=== PATIENT | male | born 1970 | race Caucasian/White ===

== ENCOUNTER 2021-12-11 09:50 | Emergency (ER) | payer OTHER, SELFPAY ==
[2021-12-11] VITALS (17 sets, daily range): BP systolic 129–158; BP diastolic 76–89; PULSE 68–77; RESP 18; TEMP 36.5; O2SAT 98–100; BMI 28.3
--- NOTE | 2021-12-11 10:03 | ED_ITS ---
HPI - General Adult General Chief complaint: Abdominal Pain Stated complaint: fluid in belly Time Seen by Provider: 12/11/21 09:54 Source: patient Mode of arrival: Ambulatory Limitations: no limitations History of Present Illness HPI narrative: 51-year-old male who has a history of ascites. He states he does see a GI doctor and a kidney doctor and a primary doctor in [place]. He is visiting the local area. Has had multiple paracentesis in the past. He states that there still under investigation as to whether not it is his liver or his kidneys that is causing the issues. Over the past 7-10 days he has noticed increasing swelling in his abdomen. Some minor shortness of breath. He is not on blood thinners. He is here in the emergency department for a paracentesis. Review of Systems Constitutional Constitutional: Reports system reviewed and no additional complaints, except as documented Respiratory Respiratory: Reports as per HPI and Reports system reviewed and no additional complaints, except as documented Gastrointestinal Gastrointestinal: Reports as per HPI and Reports system reviewed and no additional complaints, except as documented Genitourinary Genitourinary: Reports system reviewed and no additional complaints, except as documented Hematologic/Lymphatic On Anticoagulants: No Patient History Medical History (Updated 12/11/21 @ 11:50 by Gulshan Austin DO) Ascites Social History lives independently: Yes Exam Initial Vital Signs Initial Vital Signs: Vital Signs Temperature 97.7 F 12/11/21 09:55 Pulse Rate 76 12/11/21 09:55 Respiratory Rate 18 12/11/21 09:55 Blood Pressure 158/85 H 12/11/21 09:55 Pulse Oximetry 99 12/11/21 09:55 Oxygen Delivery Method 12/11/21 09:55 [facility] Head: normal to inspection and normocephalic Resp Effort & Inspection: normal respiratory effort and not labored Auscultation: clear to auscultation bilaterally Cardio Rate: regular rate GI Inspection: distended Palpation: soft, No tender and ascites Skin General: no rashes or lesions noted Neuro General: patient alert, patient awake and moves all extremities Extrem General: normal to inspection and capillary refill normal Psych Appearance: grossly normal Procedures Paracentesis Time Out Performed: Yes Indication: Ascites Procedure: therapeutic paracentesis Location: RLQ Local Anesthetic: lidocaine 1% Amount of anesthesia used (mL): 2 Bedside Ultrasound Used: yes, Ascites confirmed and location marked Preparation: Blade used to make hua in skin Amount of fluid obtained (mL): 8,000 Fluid: clear Post Procedure Exam: awake, alert and normal BP Patient Tolerated Procedure: Well and No complications Course Vital Signs Vital signs: Vital Signs - 8 hr 12/11/21 10:30 12/11/21 10:30 12/11/21 11:00 Pulse Rate 68 Blood Pressure 129/76 154/87 H Pulse Oximetry 100 Oxygen Delivery Method 12/11/21 11:00 12/11/21 11:15 12/11/21 11:15 Pulse Rate 73 73 Blood Pressure 151/88 H Pulse Oximetry 100 99 Oxygen Delivery Method 12/11/21 11:30 12/11/21 11:30 12/11/21 11:40 Pulse Rate 73 Blood Pressure 148/88 H 144/82 H Pulse Oximetry 100 Oxygen Delivery Method 12/11/21 11:40 12/11/21 12:00 12/11/21 12:00 Pulse Rate 72 68 Blood Pressure 137/80 Pulse Oximetry 99 99 Oxygen Delivery Method 12/11/21 12:11 12/11/21 12:11 12/11/21 12:12 Pulse Rate 70 Blood Pressure 139/89 137/85 Pulse Oximetry 99 Oxygen Delivery Method 12/11/21 12:12 12/11/21 12:20 12/11/21 12:20 Pulse Rate 71 71 Blood Pressure 131/81 Pulse Oximetry 98 99 Oxygen Delivery Method 12/11/21 12:30 12/11/21 12:30 12/11/21 12:40 Pulse Rate 71 69 Blood Pressure 134/84 Pulse Oximetry 98 99 Oxygen Delivery Method Room Air 12/11/21 12:40 12/11/21 12:50 12/11/21 12:50 Pulse Rate 74 Blood Pressure 138/84 136/79 Pulse Oximetry 99 Oxygen Delivery Method 12/11/21 13:00 12/11/21 13:00 12/11/21 13:10 Pulse Rate 71 Blood Pressure 140/86 140/86 Pulse Oximetry 98 Oxygen Delivery Method 12/11/21 13:10 Pulse Rate 69 Blood Pressure Pulse Oximetry 99 Oxygen Delivery Method Medical Decision Making MDM Narrative Medical decision making narrative: Patient has had an issue with ascites. He has had a paracentesis in the past. He does have a distended abdomen. No respiratory distress. Patient is here for therapeutic paracentesis. We discussed risks and benefits. Did remove 8 L of fluid. The patient tolerated this well. Has had no issues with hypotension. Ambulated afterwards without issues. He its his care CTA ago will follow-up when he returns home. We did discuss return precautions and follow-up instructions. Patient is afebrile. Clear fluid. Low suspicion for infection. We will not send it for any cultures for now. He expressed understanding and agreement this plan. Discharge Plan Departure Patient Disposition: Home Clinical Impression: Ascites Instructions: DI for Ascites, Abdominal Paracentesis Activity Restrictions/Additional Instructions: It is important that you follow-up with your providers when you return back home. Continue to take any medication as directed. Return to the emergency department for any new or worsening symptoms. Referrals: Nadiya Francis MD [Physician] - Visit Report Forms: Patient Portal/API
== END 2021-12-11 13:22 | disposition home or self-care (01) ==
PROVIDERS: Emergency Provider Emergency Medicine
DX: R18.8 Other ascites (principal)
CPT/HCPCS: 49083; 99281; 99283

== ENCOUNTER 2022-01-25 07:50 | Emergency (ER) | payer OTHER, SELFPAY ==
[2022-01-25] VITALS (13 sets, daily range): BP systolic 118–137; BP diastolic 70–88; PULSE 66–74; RESP 18; TEMP 36.3; O2SAT 98–100; BMI 26.9
[2022-01-25 08:21] LABS: Add Manual Diff / Slide Review NO; Basophils Absolute Auto 100 /uL (0-100); Basophils Percent Auto 0.9 % (0-2); Eosinophils Absolute Auto 200 /uL (0-450); Eosinophils Percent Auto 2.3 % (2-4); Hematocrit 30.8 % (41-53); Hemoglobin 10.8 g/dL (13.5-17.5); Lymphocytes Absolute Auto 1500 /uL (1100-4500); Lymphocytes Percent Auto 15.2 % (25-40); Mean Corpuscular HGB Conc 35.2 % (30-36); Mean Corpuscular Volume 88.1 fL (80-100); Monocytes Absolute Auto 1300 /uL (0-900); Monocytes Percent Auto 13.6 % (3-14); Neutrophils Absolute Auto 6600 /uL (1500-7000); Platelet Count 125 X10^3/uL (150-400); Red Blood Cell Count 3.49 X10^6/uL (4.5-5.9); Red Cell Distribution Width 14.5 % (11.6-14.8); White Blood Cell Count 9.7 X10^3/uL (4.5-11.0)
[2022-01-25 08:22] LABS: INR 1.3 (0.9-1.3); Prothrombin Time 14.8 SECONDS (10.1-12.7)
[2022-01-25 08:24] LABS: PTT Partial Thromboplastin Tim 43 SECONDS (26.4-36.2)
[2022-01-25 08:28] LABS: Alanine Aminotransferase 17 IU/L (<50); Albumin 4.7 g/dL (3.5-5.0); Alkaline Phosphatase 91 U/L (38-126); Aspartate Aminotransferase 25 IU/L (17-59); BUN Creatinine Ratio 12.3 (6-22); Blood Urea Nitrogen 42 mg/dL (9-20); Calcium 9.2 mg/dL (8.4-10.2); Carbon Dioxide 23 mmol/L (22-32); Chloride 102 mmol/L (98-107); Estimated Glomerular Filt Rate 21 mL/min (>60); Globulin 4.5 g/dL (1.7-4.1); Glucose 121 mg/dL (70-100); HEMOLYSIS < 15 (0-50); Lipase 165 U/L (23-300); Potassium 3.9 mmol/L (3.4-5.1); Sodium 137 mmol/L (137-145); Total Protein 9.2 g/dL (6.3-8.2)
--- NOTE | 2022-01-25 09:56 | ED.ABDPAIN ---
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 Patient lives full-time in [place] and receives all of his care there but has a house locally and has been visiting the area regularly. Patient states he has had paracentesis in the past typically 8-10 L off they will sometimes give albumin sometimes will not. He states he has been slowly accumulating fluid it is becoming more and more uncomfortable. He is not established with a primary care provider locally. He denies fevers or chills. No chest pain or shortness of breath. No abdominal pain. No nausea or vomiting. No issues with urination or bowel movements. Patient denies any swelling in his extremities. Patient states no prior surgeries. No known drug allergies. He was on Bumex but stopped this recently as he felt like it was not very helpful. He is continuing on his Lasix he is also on beta-rocio. Review of Systems Review of Systems ROS Unobtainable: All systems reviewed & are unremarkable except as noted in HPI and below Patient History Medical History Ascites Social History lives independently: Yes alcohol intake frequency: other Substance Use Type: former substance user Exam Narrative Exam Narrative: GENERAL: Alert and oriented x three, mild distress HEENT: Head normocephalic, atraumatic, EOMI, pupils reactive, face symmetric, moist mucous membranes NECK: Supple, full range of motion CARDIOVASCULAR: Regular rate and rhythm without murmurs, rubs or gallops. RESPIRATORY: Breath sounds equal bilaterally, no wheezes rales or rhonchi. ABDOMEN: Soft, distended. Nontender. Normoactive bowel sounds all 4 quadrants. No guarding or rebound, rigidity, no mass : No CVA tenderness EXTREMITIES: Normal range of motion, no clubbing or edema. Neurovascularly intact NEUROLOGICAL: Cranial nerves II through XII grossly intact. Moving all extremities SKIN: Warm, dry, no petechiae, no rashes or lesions. Initial Vital Signs Initial Vital Signs: Vital Signs Temperature 97.3 F L 01/25/22 07:50 Pulse Rate 74 01/25/22 07:50 Respiratory Rate 18 01/25/22 07:50 Blood Pressure 131/78 01/25/22 07:50 Pulse Oximetry 100 01/25/22 07:50 Oxygen Delivery Method 01/25/22 07:50 Course Orders Ordered: Discontinued Medications Albumin Human (Albuminar) 50 gm in 200 mls @ 60 mls/hr IV NOW ONE Stop: 01/25/22 15:00 Last Infusion: 01/25/22 14:01 Dose: 0 mls/hr Documented By: Admin: 01/25/22 12:09 Dose: 60 mls/hr Documented By: BS Reevaluation(s) Reevaluation #1: Patient had paracentesis, at about 7.5 L his catheter fell out. It was not replaced. Patient did receive albumin he had the 1st bottle but politely refuses the 2nd 1 and had 25 g total. He has not been hypotensive Time: 13:37 Vital Signs Vital signs: Vital Signs - 8 hr 01/25/22 13:00 01/25/22 13:00 01/25/22 13:30 Pulse Rate 69 Blood Pressure 136/84 127/77 Pulse Oximetry 100 01/25/22 13:30 Pulse Rate 69 Blood Pressure Pulse Oximetry 100 MDM - Abdominal Pain Lab Data Result diagrams: 01/25/22 08:07 01/25/22 08:07 Labs: Lab Results 01/25/22 01/25/22 01/25/22 Range/Units 08:07 08:07 08:07 WBC 9.7 (4.5-11.0) X10^3/uL RBC 3.49 L (4.5-5.9) X10^6/uL Hgb 10.8 L (13.5-17.5) g/dL Hct 30.8 L (41-53) % MCV 88.1 (80-100) fL MCH 31.0 (26-34) PG MCHC 35.2 (30-36) % RDW 14.5 (11.6-14.8) % Plt Count 125 L (150-400) X10^3/uL Neut % (Auto) 68.0 (50-75) % Lymph % (Auto) 15.2 L (25-40) % [place] % (Auto) 13.6 (3-14) % Eos % (Auto) 2.3 (2-4) % Baso % (Auto) 0.9 (0-2) % Neut # (Auto) 6600 (6965-5587) /uL Lymph # (Auto) 1500 (2714-6076) /uL [place] # (Auto) 1300 H (0-900) /uL Eos # (Auto) 200 (0-450) /uL Baso # (Auto) 100 (0-100) /uL PT 14.8 H (10.1-12.7) SECONDS INR 1.3 (0.9-1.3) APTT 43 H (26.4-36.2) SECONDS Sodium 137 (137-145) mmol/L Potassium 3.9 (3.4-5.1) mmol/L Chloride 102 (98-107) mmol/L Carbon Dioxide 23 (22-32) mmol/L BUN 42 H (9-20) mg/dL Creatinine 3.42 H (0.66-1.25) mg/dL Estimated GFR 21 L (>60) mL/min BUN/Creatinine Ratio 12.3 (6-22) Glucose 121 H (70-100) mg/dL Calcium 9.2 (8.4-10.2) mg/dL Total Bilirubin 1.0 (0.2-1.3) mg/dL AST 25 (17-59) IU/L ALT 17 (<50) IU/L Alkaline Phosphatase 91 (38-126) U/L Total Protein 9.2 H (6.3-8.2) g/dL Albumin 4.7 (3.5-5.0) g/dL Globulin 4.5 H (1.7-4.1) g/dL Albumin/Globulin Ratio 1.0 (1.0-2.8) Lipase 165 (23-300) U/L Imaging Data paracentesis US: Radiologist's Impression: Close Paracentesis Ultrasound (Signed) Dany Plata - 01/25/22 Launch?[address] [address] Ultrasound Report Signed Patient: Ross Carrillo MR#: [id number] : 1970 Acct:[id number] Age/Sex: 51 / M Date of Service: 01/25/22 Loc: ED Accession Number: [id number] ?? Procedure: US paracentesis Ordering Provider: Lala Penn D.O. PROCEDURE:? US PARACENTESIS ? INDICATIONS:? ASCITIES ? TECHNIQUE:? The indications, alternatives, benefits, risks, and complications of the procedure were explained to the patient.? Written informed consent was obtained and placed in the chart. ?The abdomen and pelvis were examined sonographically, and an appropriate site was chosen for paracentesis.? The skin was prepared and draped in the usual sterile fashion, and 1% lidocaine was infiltrated from the skin down through the peritoneal surface.? A 19-gauge catheter-covered needle was then introduced into the peritoneal space, the catheter was advanced and the needle was withdrawn, and thereafter peritoneal fluid was withdrawn.? The catheter was then removed and a dressing was applied.? The fluid was discarded if the clinician did not order diagnostic testing of the fluid.? ? COMPARISON:? None. ? FINDINGS:? Access site:? Right lower quadrant Needle:? One-Step centesis catheter with introducer needle.? Fluid volume and description:? Clear, 7200 cc Fluid sent for diagnostic testing:? No Medications:? 1% lidocaine for local anaesthesia.? Complications:? None.? Discussed with ED clinician to confirm that? albumin was ordered and will be given following procedure. ? IMPRESSION:? Successful ultrasound-guided paracentesis.? ? ? Dictated by: Dany Plata M.D. on 01/25/2022 at 13:05 ? ? Approved by: Dany Plata M.D. on 01/25/2022 at 13:06??? MDM Narrative Medical decision making narrative: This is a 51-year-old male with known liver failure secondary to alcohol abuse. He has had paracentesis in the past at 1 point he was every 2 weeks he states it is based out since then but he is had accumulation while he has been staying locally. Majority of his care is in [facility]. He has known chronic kidney disease stage 4. He does not have major electrolyte changes today, platelets are appropriate. Patient is quite distended although not requiring emergent paracentesis he does not have local primary care and would benefit from drainage today. No changes or clinical symptoms concerning for SBP today. Patient has hemoglobin of which is not atypical with chronic kidney disease platelets are 125. PT/INR is 1.3. Creatinine 3.42 no priors for comparison with a GFR of 21, electrolytes are otherwise stable. Patient had 7.2 L drained, catheter had fallen out so patient did not have any additional he is had up to 10 L in the past. Patient did have albumin ordered he refused the 2nd bottle so received 25 g but not the full 50. Patient has not been hypotensive, is able to ambulate without issue. He and I discussed ways to help him set up with local primary care in case he needs frequent ultrasound-guided paracentesis as he is spending a lot of time locally and does not have any outpatient care locally. Discharge Plan Departure Patient Disposition: Home Clinical Impression: Ascites Instructions: DI for Abdominal Paracentesis Activity Restrictions/Additional Instructions: Follow-up with primary care locally to establish. You can call [phone] to help you find a primary care physician. They can help coordinate care if you are spending more time in the area regularly and also help arrange for outpatient paracentesis. As discussed you can reach out to billing and they may be able to answer questions about what your current health insurance can cover as an outpatient. Your labs today show a slightly low platelets, your creatinine or renal function is 3.42 with a GFR of 21, I would reach out to your nephrology or renal team for primary care in [place] to confirm that this is your normal baseline as I have no prior labs for comparison. Please return for fevers, new or worsening abdominal pain, shortness of breath, lightheadedness or passing out, increasing swelling of extremities or abdomen, persistent vomiting, black or bloody stools or other new or concerning symptoms. Visit Report Forms: Patient Portal/API
--- NOTE | 2022-01-25 10:22 | DI.US.S_ITS ---
PROCEDURE: US PARACENTESIS INDICATIONS: ASCITIES TECHNIQUE: The indications, alternatives, benefits, risks, and complications of the procedure were explained to the patient. Written informed consent was obtained and placed in the chart. The abdomen and pelvis were examined sonographically, and an appropriate site was chosen for paracentesis. The skin was prepared and draped in the usual sterile fashion, and 1% lidocaine was infiltrated from the skin down through the peritoneal surface. A 19-gauge catheter-covered needle was then introduced into the peritoneal space, the catheter was advanced and the needle was withdrawn, and thereafter peritoneal fluid was withdrawn. The catheter was then removed and a dressing was applied. The fluid was discarded if the clinician did not order diagnostic testing of the fluid. COMPARISON: None. FINDINGS: Access site: Right lower quadrant Needle: One-Step centesis catheter with introducer needle. Fluid volume and description: Clear, 7200 cc Fluid sent for diagnostic testing: No Medications: 1% lidocaine for local anaesthesia. Complications: None. Discussed with ED clinician to confirm that albumin was ordered and will be given following procedure. IMPRESSION: Successful ultrasound-guided paracentesis. Dictated by: Dany Plata M.D. on 01/25/2022 at 13:05 Approved by: Dany Plata M.D. on 01/25/2022 at 13:06
[2022-01-25] MEDS: ALBUMIN HUMAN 50 GM/200 ML VIAL IV (12:09)
--- NOTE | 2022-01-25 13:31 | PC.NURSE ---
Pt declines second dose of Albumin. Provider aware.
== END 2022-01-25 13:51 | disposition home or self-care (01) ==
PROVIDERS: Emergency Provider Emergency Medicine
DX: R18.8 Other ascites (principal); N18.4 Chronic kidney disease, stage 4 (severe); Z99.2 Dependence on renal dialysis
CPT/HCPCS: 36415; 49083; 80053; 83690; 85025; 85610; 85730; 96365; 96366; 99284; P9041

== ENCOUNTER 2022-02-02 06:30 | Emergency (ER) | payer OTHER, SELFPAY ==
[2022-02-02] VITALS (15 sets, daily range): BP systolic 117–138; BP diastolic 69–90; PULSE 65–75; RESP 20; TEMP 36.5; O2SAT 98–100; BMI 26.1
[2022-02-02 07:31] LABS: COVID19 -Nasal RAPID Negative (Negative)
--- NOTE | 2022-02-02 08:04 | ED_ITS ---
HPI - General Adult General Chief complaint: Abdominal Pain Stated complaint: fluid in stomach Time Seen by Provider: 02/02/22 07:06 Source: patient Mode of arrival: Ambulatory History of Present Illness HPI narrative: 51-year-old gentleman history of alcohol use disorder who has had no alcohol for at least the last year history of cirrhosis and chronic kidney injury with creatinine typically running in the 3.2-3.5 range presents with recurrent significant ascites. 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 He had been on both Lasix and Bumex that last week stop both of them because he felt that they were making him worse and not improving symptoms. Notes that he has been eating more but reports that it is healthy overall choices. He has been drinking more tea and coffee recently he is not complaining of pain. He does report dyspnea and orthopnea simply due to the physical volume of ascites. He comes in today because his belly is again significantly distended and he is uncomfortable from the distension. No lower extremity edema, chest pain, palpitations. No evidence of hepatic encephalopathy or significant jaundice. He describes his 1st paracentesis as approximately a year ago associated with a 3 day hospital stay and it sounds like to large volume paracenteses were done during that stay. That was effective for approximately 6 months is next with 2 months later the next was 1 month most recent was last week and within 8 days he is returning with similar reaccumulated fluid levels. Related Data Previous Rx's Medication Instructions Recorded torsemide 40 mg tablet 40 mg PO DAILY #30 tabs 02/02/22 Allergies Allergy/AdvReac Type Severity Reaction Status Date / Time No Known Drug Allergies Allergy Verified 02/02/22 06:43 Review of Systems Review of Systems Narrative: Remainder of complete review of systems is otherwise unremarkable except for that included in the HPI. Patient History Medical History (Updated 02/02/22 @ 12:59 by Shirley Patel MD) Alcohol use disorder Ascites Chronic renal failure Hypertension Liver failure Social History lives independently: Yes alcohol intake frequency: other Substance Use Type: former substance user Exam Initial Vital Signs Initial Vital Signs: Vital Signs Temperature 97.7 F 02/02/22 06:39 Pulse Rate 75 02/02/22 06:39 Respiratory Rate 20 02/02/22 06:39 Blood Pressure 131/80 02/02/22 06:39 Pulse Oximetry 100 02/02/22 06:39 Oxygen Delivery Method 02/02/22 06:39 General: Healthy appearing, in no acute distress. Able to give a complete and coherent history. Well-nourished well-developed HEENT: Moist mucous membranes, normal sclera with reactive pupils, Neck: No JVD, supple Respiratory: Lungs are clear to auscultation, no wheezing no rales no rhonchi. Full and symmetrical air movement Cardiac: Regular rate and rhythm, 3/6 systolic ejection murmur no bruits Abdomen: significant distension consistent with ascites, positive fluid shift, nontender to palpation nontender, no flank pain Skin: Warm and dry, no rashes, scattered spider hemangiomas significant jaundice is not appreciated on clinical exam Neurologic: Grossly neurologically intact with no obvious asymmetries or abnormalities Extremities: No trauma, well perfused, no lower extremity edema Psych: Cooperative, appropriate insight and affect Procedures Paracentesis Time of procedure: 12:49 Indication: Ascites Procedure: therapeutic paracentesis Location: RLQ Preparation: sterile prep and drape Amount of fluid obtained (mL): 5,000 Fluid: clear Post Procedure Exam: awake, alert, normal BP, normal HR and normal SpO2 Patient Tolerated Procedure: Well Course Orders Ordered: ED Orders 02/02/22 06:45 Ammonia (NH3) Stat CBC Auto Diff [Complete Blood Count AUTO DIFF] Stat CMP [Comprehensive Metabolic Panel] Stat COVID19 -Nasal RAPID/Pre-Proc Stat 02/02/22 06:52 EKG-12 Lead Stat Vital Signs Vital signs: Vital Signs - 8 hr 02/02/22 06:39 02/02/22 07:29 02/02/22 07:30 Temperature 97.7 F Pulse Rate 75 68 68 Respiratory Rate 20 Blood Pressure 131/80 Pulse Oximetry 100 100 100 Oxygen Delivery Method Room Air 02/02/22 08:00 02/02/22 08:30 02/02/22 09:00 Temperature Pulse Rate 69 67 69 Respiratory Rate Blood Pressure Pulse Oximetry 100 100 100 Oxygen Delivery Method 02/02/22 09:10 02/02/22 09:10 02/02/22 09:30 Temperature Pulse Rate 72 Respiratory Rate Blood Pressure 126/80 128/82 Pulse Oximetry 100 Oxygen Delivery Method 02/02/22 09:30 02/02/22 10:00 02/02/22 10:01 Temperature Pulse Rate 67 73 73 Respiratory Rate Blood Pressure Pulse Oximetry 100 98 99 Oxygen Delivery Method 02/02/22 10:01 02/02/22 10:30 02/02/22 10:30 Temperature Pulse Rate 70 Respiratory Rate Blood Pressure 134/83 132/81 Pulse Oximetry 100 Oxygen Delivery Method Medical Decision Making Lab Data Result diagrams: 02/02/22 06:45 02/02/22 06:45 Labs: Lab Results 02/02/22 02/02/22 02/02/22 Range/Units 06:45 06:45 06:45 WBC 8.3 (4.5-11.0) X10^3/uL RBC 3.36 L (4.5-5.9) X10^6/uL Hgb 10.4 L (13.5-17.5) g/dL Hct 30.0 L (41-53) % MCV 89.4 (80-100) fL MCH 31.0 (26-34) PG MCHC 34.7 (30-36) % RDW 14.8 (11.6-14.8) % Plt Count 122 L (150-400) X10^3/uL Neut % (Auto) 69.7 (50-75) % Lymph % (Auto) 15.7 L (25-40) % [place] % (Auto) 11.6 (3-14) % Eos % (Auto) 2.2 (2-4) % Baso % (Auto) 0.8 (0-2) % Neut # (Auto) 5800 (5424-9939) /uL Lymph # (Auto) 1300 (4368-0451) /uL [place] # (Auto) 1000 H (0-900) /uL Eos # (Auto) 200 (0-450) /uL Baso # (Auto) 100 (0-100) /uL Sodium 138 (137-145) mmol/L Potassium 4.0 (3.4-5.1) mmol/L Chloride 106 (98-107) mmol/L Carbon Dioxide 21 L (22-32) mmol/L BUN 40 H (9-20) mg/dL Creatinine 2.94 H (0.66-1.25) mg/dL Estimated GFR 25 L (>60) mL/min BUN/Creatinine Ratio 13.6 (6-22) Glucose 140 H (70-100) mg/dL Calcium 8.9 (8.4-10.2) mg/dL Total Bilirubin 0.8 (0.2-1.3) mg/dL AST 29 (17-59) IU/L ALT 20 (<50) IU/L Alkaline Phosphatase 90 (38-126) U/L Ammonia (9-30) umol/L Total Protein 8.4 H (6.3-8.2) g/dL Albumin 4.3 (3.5-5.0) g/dL Globulin 4.1 (1.7-4.1) g/dL Albumin/Globulin Ratio 1.0 (1.0-2.8) SARS-CoV-2 (PCR) Negative (Negative) 02/02/22 Range/Units 06:45 WBC (4.5-11.0) X10^3/uL RBC (4.5-5.9) X10^6/uL Hgb (13.5-17.5) g/dL Hct (41-53) % MCV (80-100) fL MCH (26-34) PG MCHC (30-36) % RDW (11.6-14.8) % Plt Count (150-400) X10^3/uL Neut % (Auto) (50-75) % Lymph % (Auto) (25-40) % [place] % (Auto) (3-14) % Eos % (Auto) (2-4) % Baso % (Auto) (0-2) % Neut # (Auto) (9514-9936) /uL Lymph # (Auto) (6846-0257) /uL [place] # (Auto) (0-900) /uL Eos # (Auto) (0-450) /uL Baso # (Auto) (0-100) /uL Sodium (137-145) mmol/L Potassium (3.4-5.1) mmol/L Chloride (98-107) mmol/L Carbon Dioxide (22-32) mmol/L BUN (9-20) mg/dL Creatinine (0.66-1.25) mg/dL Estimated GFR (>60) mL/min BUN/Creatinine Ratio (6-22) Glucose (70-100) mg/dL Calcium (8.4-10.2) mg/dL Total Bilirubin (0.2-1.3) mg/dL AST (17-59) IU/L ALT (<50) IU/L Alkaline Phosphatase (38-126) U/L Ammonia 26 (9-30) umol/L Total Protein (6.3-8.2) g/dL Albumin (3.5-5.0) g/dL Globulin (1.7-4.1) g/dL Albumin/Globulin Ratio (1.0-2.8) SARS-CoV-2 (PCR) (Negative) MDM Narrative Medical decision making narrative: 51-year-old gentleman with alcoholic cirrhosis and recurrent ascites. Transitioning between [place] and [place] at needs to establish providers in [place]. Was here last week for paracentesis, large volume 7 L and albumin given. He returns today with complete reaccumulation of fluid. He notes that he stopped his diuretics in the interval. He had been on Lasix and Bumex. He has no signs of encephalopathy and ammonia levels as well as liver function studies are all within normal limits. Talked with Dr. Luu, Gastroenterology at [facility]. He recommended reviewing with Neurology given his stage IV liver disease. His office will reach out to the patient to establish care as his primary microfilm operator. Reviewed with Dr Casiano who also agrees that hepatorenal syndrome is a concern. Will follow up with the patient as an outpatient. He recommends 25 mg of spironolactone and 40 mg of torsemide Patient is frustrated that I am unwilling to take at 10 L of fluid. He states that 5 L is the least amount of fluid that he is ever taken and that he is never heard of hepatorenal syndrome and nobody else is concerned. Explained to him that, despite his frustration, I prefer to provide the best medical care p ossible which means no more than 5 L removed today and restarting diuretics and follow up with Gastroenterology and Nephrology to arrange scheduled paracentesis rather than return visits to the emergency department. He is hemodynamically stable and safe for discharge at this time Discharge Plan Departure Patient Disposition: Home Clinical Impression: Ascites Qualifiers: Ascites type: due to alcoholic cirrhosis Qualified Code(s): K70.31 - Alcoholic cirrhosis of liver with ascites Alcoholic cirrhosis of liver Qualifiers: Ascites presence: with ascites Qualified Code(s): K70.31 - Alcoholic cirrhosis of liver with ascites Chronic kidney disease Qualifiers: Chronic kidney disease stage: stage 4 (severe) Qualified Code(s): N18.4 - Chronic kidney disease, stage 4 (severe) Instructions: DI for Abdominal Paracentesis Activity Restrictions/Additional Instructions: Thank you for coming in today I am concerned that your abdominal fluid, ascites, has reaccumulated within a week. Your labs are essentially unchanged suggesting no acute infection or worsening of your baseline liver issue. I am concerned with your elevated creatinine. Continued paracentesis, particularly large volume paracentesis, in this setting can precipitate hepatorenal syndrome. I know that providers have not mentioned this to you before and I would encourage you to do your own research on this and I have given you information from [employer], a common resource for physicians. Today we took 5 L of fluid from your belly. There was no sign of infection or bleeding. You need to follow up with Dr. Casiano, nephrology. Please call his office at [phone] to schedule an appointment He has also suggested 40 mg of torsemide and 25 mg of spironolactone. You have the spironolactone and can simply increase this to a full pill. I have given you a prescription for the torsemide. Please do not continue the Lasix. You will also need to see a microfilm operator. Dr. Luu at [facility] is the microfilm operator I spoke with today. His office will be [facility] ng you a call to set up a follow-up appointment If you find that you are getting worse or develop any new symptoms, please feel free to return to the emergency department for further evaluation. Prescriptions: New torsemide 40 mg tablet 40 mg PO DAILY Qty: 30 1RF
[2022-02-02 08:32] LABS: Add Manual Diff / Slide Review NO; Basophils Absolute Auto 100 /uL (0-100); Basophils Percent Auto 0.8 % (0-2); Eosinophils Absolute Auto 200 /uL (0-450); Eosinophils Percent Auto 2.2 % (2-4); Hemoglobin 10.4 g/dL (13.5-17.5); Lymphocytes Absolute Auto 1300 /uL (1100-4500); Lymphocytes Percent Auto 15.7 % (25-40); Mean Corpuscular HGB Conc 34.7 % (30-36); Mean Corpuscular Volume 89.4 fL (80-100); Monocytes Absolute Auto 1000 /uL (0-900); Monocytes Percent Auto 11.6 % (3-14); Neutrophils Absolute Auto 5800 /uL (1500-7000); Neutrophils Percent Auto 69.7 % (50-75); Platelet Count 122 X10^3/uL (150-400); Red Blood Cell Count 3.36 X10^6/uL (4.5-5.9); Red Cell Distribution Width 14.8 % (11.6-14.8); White Blood Cell Count 8.3 X10^3/uL (4.5-11.0)
[2022-02-02 08:37] LABS: Ammonia (NH3) 26 umol/L (9-30)
[2022-02-02 08:38] LABS: Alanine Aminotransferase 20 IU/L (<50); Albumin 4.3 g/dL (3.5-5.0); Alkaline Phosphatase 90 U/L (38-126); Aspartate Aminotransferase 29 IU/L (17-59); BUN Creatinine Ratio 13.6 (6-22); Bilirubin Total 0.8 mg/dL (0.2-1.3); Blood Urea Nitrogen 40 mg/dL (9-20); Calcium 8.9 mg/dL (8.4-10.2); Carbon Dioxide 21 mmol/L (22-32); Chloride 106 mmol/L (98-107); Estimated Glomerular Filt Rate 25 mL/min (>60); Globulin 4.1 g/dL (1.7-4.1); Glucose 140 mg/dL (70-100); HEMOLYSIS < 15 (0-50); Sodium 138 mmol/L (137-145); Total Protein 8.4 g/dL (6.3-8.2)
== END 2022-02-02 13:12 | disposition home or self-care (01) ==
PROVIDERS: Emergency Medicine; Emergency Provider Emergency Medicine
DX: K70.31 Alcoholic cirrhosis of liver with ascites (principal); N18.4 Chronic kidney disease, stage 4 (severe); Z20.822 Contact with and (suspected) exposure to COVID-19
CPT/HCPCS: 49082; 80053; 82140; 85025; 87635; 93005; 93010; 99281; 99284; C9803

== ENCOUNTER 2022-02-16 07:02 | Emergency (ER) | payer OTHER, SELFPAY ==
[2022-02-16] VITALS (10 sets, daily range): BP systolic 128–140; BP diastolic 83–90; PULSE 77–86; RESP 19; TEMP 36.3; O2SAT 98–99; BMI 26.9
[2022-02-16 10:22] LABS: Add Manual Diff / Slide Review NO; Basophils Absolute Auto 0 /uL (0-100); Basophils Percent Auto 0.4 % (0-2); Eosinophils Absolute Auto 200 /uL (0-450); Eosinophils Percent Auto 1.9 % (2-4); Hematocrit 29.3 % (41-53); Hemoglobin 10.2 g/dL (13.5-17.5); Lymphocytes Absolute Auto 900 /uL (1100-4500); Lymphocytes Percent Auto 10.9 % (25-40); Mean Corpuscular Hemoglobin 31.4 PG (26-34); Mean Corpuscular Volume 89.8 fL (80-100); Monocytes Absolute Auto 800 /uL (0-900); Monocytes Percent Auto 9.9 % (3-14); Neutrophils Absolute Auto 6300 /uL (1500-7000); Neutrophils Percent Auto 76.9 % (50-75); Platelet Count 101 X10^3/uL (150-400); Red Blood Cell Count 3.26 X10^6/uL (4.5-5.9); Red Cell Distribution Width 16.5 % (11.6-14.8); White Blood Cell Count 8.1 X10^3/uL (4.5-11.0)
[2022-02-16 10:23] LABS: INR 1.3 (0.9-1.3); Prothrombin Time 14.9 SECONDS (10.1-12.7)
[2022-02-16 10:26] LABS: PTT Partial Thromboplastin Tim 36 SECONDS (26-36)
[2022-02-16 10:30] LABS: Alanine Aminotransferase 13 IU/L (<50); Albumin 4.1 g/dL (3.5-5.0); Alkaline Phosphatase 106 U/L (38-126); Ammonia (NH3) < 9 umol/L (9-30); Aspartate Aminotransferase 21 IU/L (17-59); BUN Creatinine Ratio 14.8 (6-22); Bilirubin Total 1.3 mg/dL (0.2-1.3); Blood Urea Nitrogen 45 mg/dL (9-20); Calcium 9.1 mg/dL (8.4-10.2); Carbon Dioxide 25 mmol/L (22-32); Chloride 105 mmol/L (98-107); Estimated Glomerular Filt Rate 24 mL/min (>60); Globulin 4.3 g/dL (1.7-4.1); Glucose 119 mg/dL (70-100); HEMOLYSIS < 15 (0-50); Lipase 223 U/L (23-300); Sodium 137 mmol/L (137-145); Total Protein 8.4 g/dL (6.3-8.2)
--- NOTE | 2022-02-16 10:30 | ED_ITS ---
HPI - General Adult General Chief complaint: Abdominal Pain Stated complaint: Paracenthesis Time Seen by Provider: 02/16/22 09:12 Source: patient Mode of arrival: Family Vehicle Limitations: no limitations History of Present Illness HPI narrative: This is a 51-year-old male with known liver failure secondary to EtOH abuse who states he has been sober for the past year, stage 4 chronic kidney disease not on dialysis with recurrent ascites. He is currently alternating between here at [place]. Patient has been in the area for 1-2 months. He is had multiple visits for paracentesis for comfort. Patient states no fevers or chills, no chest pain or shortness of breath. He is fatigued he has difficulty exercising ambulating secondary to the swelling and discomfort, denies dysuria, urgency or frequency, no issues with bowel movements no diarrhea black or bloody stools. He has not had any abdominal pain. He has not had any erythema skin changes or signs of infection patient denies extremity swelling. Patient states that there was some miscommunication last time he is on Bumex 1 mg and was taking this prior to his last visit on the but had related that to the staff and he was taking spironolactone 12.5 mg daily and has increased to [address] Luu's office was in touch with him. Patient notes that he has not established with primary care or anyone locally because of insurance issues he has insurance based out of [place] and it does not cover services locally. Related Data Previous Rx's Medication Instructions Recorded torsemide 40 mg tablet 40 mg PO DAILY #30 tabs 02/02/22 spironolactone 25 mg tablet 50 mg PO DAILY #30 tabs 02/16/22 Allergies Allergy/AdvReac Type Severity Reaction Status Date / Time No Known Drug Allergies Allergy Verified 02/16/22 07:28 Review of Systems Review of Systems ROS Unobtainable: All systems reviewed & are unremarkable except as noted in HPI and below Patient History Medical History Alcohol use disorder Ascites Chronic renal failure Hypertension Liver failure Social History lives independently: Yes Smoking Status: Current some day smoker Smoking Status: Current some day smoker tobacco type: cigarettes alcohol intake frequency: other Substance Use Type: former substance user Exam Narrative Exam Narrative: GENERAL: Alert and oriented x three, jaundiced male in mild distress. HEENT: Head normocephalic, atraumatic, EOMI, pupils reactive, face symmetric, moist mucous membranes NECK: Supple, full range of motion CARDIOVASCULAR: Regular rate and rhythm without murmurs, rubs or gallops. RESPIRATORY: Breath sounds equal bilaterally, no wheezes rales or rhonchi. ABDOMEN: Soft, nontender. Normoactive bowel sounds all 4 quadrants. No guarding or rebound, rigidity, no mass. Patient is quite distended with fluid wave present. : No CVA tenderness EXTREMITIES: Normal range of motion, no clubbing or edema. Neurovascularly intact NEUROLOGICAL: Cranial nerves II through XII grossly intact. Moving all extremities. SKIN: Warm, dry, no petechiae, no rashes or lesions. Initial Vital Signs Initial Vital Signs: Vital Signs Temperature 97.3 F L 02/16/22 07:28 Pulse Rate 79 02/16/22 07:28 Respiratory Rate 19 02/16/22 07:28 Blood Pressure 129/84 02/16/22 07:28 Pulse Oximetry 99 02/16/22 07:28 Oxygen Delivery Method 02/16/22 07:28 Procedures Paracentesis Time of procedure: 14:15 Time Out Performed: Yes Indication: Ascites Procedure: therapeutic paracentesis Location: RLQ Local Anesthetic: lidocaine 1% Amount of anesthesia used (mL): 5 Bedside Ultrasound Used: yes, real-time guidance (confirmed and marked and real time guidance ) Preparation: Blade used to make hua in skin Amount of fluid obtained (mL): 5,000 Fluid: clear Post Procedure Exam: awake, alert, normal BP, normal HR and normal SpO2 Patient Tolerated Procedure: Well and No complications Complications: none Course Orders Ordered: ED Orders 02/16/22 11:36 US abdomen limited Stat Discontinued Medications Albumin Human (Albuminar) 50 gm in 200 mls @ 60 mls/hr IV NOW ONE Stop: 02/16/22 14:54 Last Admin: 02/16/22 15:11 Dose: Not Given Documented By: ALTAGRACIA Lidocaine HCl (Lidocaine 1% 20 Ml) 20 ml INJ INTRA-OP ONE Stop: 02/16/22 12:52 Last Admin: 02/16/22 13:09 Dose: Not Given Documented By: ALTAGRACIA Lidocaine HCl (Lidocaine 1% (Pf) 5 Ml) 5 ml INJ NOW ONE Stop: 02/16/22 13:01 Last Admin: 02/16/22 13:20 Dose: 5 ml Documented By: BS Consultations Consultation #1: Dr. Luu, gastroenterology. Agrees with plan for paracentesis but states large volume maybe concerning with potential development of hepatorenal syndrome. He states he recalls this patient he recommends that we speak with Nephrology for some additional recommendations about amount of fluid be appropriate and likely patient needs albumin afterwards. Consultation #2: [facility]. Recommends no more than 5 L with paracentesis he recommends 8 grams/liter albumin for paracentesis should be likely 50 g dose. We reviewed patient's current dosages could increase his spironolactone from 25- 50 mg, can continue Bumex 1 mg daily. Vital Signs Vital signs: Vital Signs - 8 hr 02/16/22 13:18 02/16/22 13:30 02/16/22 14:00 Pulse Rate 86 77 79 Blood Pressure Pulse Oximetry 99 99 99 Oxygen Delivery Method 02/16/22 14:07 02/16/22 14:07 02/16/22 14:30 Pulse Rate 79 Blood Pressure 139/83 128/83 Pulse Oximetry 99 Oxygen Delivery Method 02/16/22 14:30 02/16/22 15:00 02/16/22 15:00 Pulse Rate 80 77 Blood Pressure 133/84 Pulse Oximetry 98 98 Oxygen Delivery Method Room Air 02/16/22 15:10 02/16/22 15:10 02/16/22 15:30 Pulse Rate 80 Blood Pressure 139/90 130/84 Pulse Oximetry 98 Oxygen Delivery Method 02/16/22 15:30 02/16/22 15:38 02/16/22 15:38 Pulse Rate 78 Blood Pressure 140/87 Pulse Oximetry 98 98 Oxygen Delivery Method Medical Decision Making Lab Data Result diagrams: 02/16/22 10:05 02/16/22 10:05 Labs: Lab Results 02/16/22 02/16/22 02/16/22 Range/Units 10:05 10:05 10:05 WBC 8.1 (4.5-11.0) X10^3/uL RBC 3.26 L (4.5-5.9) X10^6/uL Hgb 10.2 L (13.5-17.5) g/dL Hct 29.3 L (41-53) % MCV 89.8 (80-100) fL MCH 31.4 (26-34) PG MCHC 35.0 (30-36) % RDW 16.5 H (11.6-14.8) % Plt Count 101 L (150-400) X10^3/uL Neut % (Auto) 76.9 H (50-75) % Lymph % (Auto) 10.9 L (25-40) % [place] % (Auto) 9.9 (3-14) % Eos % (Auto) 1.9 L (2-4) % Baso % (Auto) 0.4 (0-2) % Neut # (Auto) 6300 (4034-3947) /uL Lymph # (Auto) 900 L (9783-8862) /uL [place] # (Auto) 800 (0-900) /uL Eos # (Auto) 200 (0-450) /uL Baso # (Auto) 0 (0-100) /uL PT 14.9 H (10.1-12.7) SECONDS INR 1.3 (0.9-1.3) APTT 36 (26-36) SECONDS Sodium 137 (137-145) mmol/L Potassium 4.0 (3.4-5.1) mmol/L Chloride 105 (98-107) mmol/L Carbon Dioxide 25 (22-32) mmol/L BUN 45 H (9-20) mg/dL Creatinine 3.05 H (0.66-1.25) mg/dL Estimated GFR 24 L (>60) mL/min BUN/Creatinine Ratio 14.8 (6-22) Glucose 119 H (70-100) mg/dL Calcium 9.1 (8.4-10.2) mg/dL Total Bilirubin 1.3 (0.2-1.3) mg/dL AST 21 (17-59) IU/L ALT 13 (<50) IU/L Alkaline Phosphatase 106 (38-126) U/L Ammonia (9-30) umol/L Total Protein 8.4 H (6.3-8.2) g/dL Albumin 4.1 (3.5-5.0) g/dL Globulin 4.3 H (1.7-4.1) g/dL Albumin/Globulin Ratio 1.0 (1.0-2.8) Lipase 223 (23-300) U/L 02/16/ Range/Units 10:05 WBC (4.5-11.0) X10^3/uL RBC (4.5-5.9) X10^6/uL Hgb (13.5-17.5) g/dL Hct (41-53) % MCV (80-100) fL MCH (26-34) PG MCHC (30-36) % RDW (11.6-14.8) % Plt Count (150-400) X10^3/uL Neut % (Auto) (50-75) % Lymph % (Auto) (25-40) % [place] % (Auto) (3-14) % Eos % (Auto) (2-4) % Baso % (Auto) (0-2) % Neut # (Auto) (1265-5530) /uL Lymph # (Auto) (8463-7014) /uL [place] # (Auto) (0-900) /uL Eos # (Auto) (0-450) /uL Baso # (Auto) (0-100) /uL PT (10.1-12.7) SECONDS INR (0.9-1.3) APTT (26-36) SECONDS Sodium (137-145) mmol/L Potassium (3.4-5.1) mmol/L Chloride (98-107) mmol/L Carbon Dioxide (22-32) mmol/L BUN (9-20) mg/dL Creatinine (0.66-1.25) mg/dL Estimated GFR (>60) mL/min BUN/Creatinine Ratio (6-22) Glucose (70-100) mg/dL Calcium (8.4-10.2) mg/dL Total Bilirubin (0.2-1.3) mg/dL AST (17-59) IU/L ALT (<50) IU/L Alkaline Phosphatase (38-126) U/L Ammonia < 9 L (9-30) umol/L Total Protein (6.3-8.2) g/dL Albumin (3.5-5.0) g/dL Globulin (1.7-4.1) g/dL Albumin/Globulin Ratio (1.0-2.8) Lipase (23-300) U/L [facility] Narrative Medical decision making narrative: This is a 51-year-old male who returns for therapeutic paracentesis with history of liver cirrhosis secondary to alcohol abuse who has been sober for the past year. Patient has recurrent ascites, no signs of infection, patient does not appear to be in extremis. Platelets, INR appropriate for paracentesis. Patient's renal function appears stable although he does have potential for hepatorenal syndrome. Discussed with gastroenterology as there was discussion about the appropriate amount of fluid to take off the patient and last time was recommended 5 L total. Gastroenterology and Nephrology after discussion both recommend no more than 5 L, patient was recommended to have albumin afterwards, and recommend that he can increase his spironolactone from 25-50 mg and continue his Bumex 1 mg daily. Patient has had a to care in terms that his insurance is not local and he has been visiting the area for some time he states he is returning to [place] so labs from today were included with discharge paperwork. Return precautions. We did discuss risks and benefits of procedure today. Patient was upset that we only took off 5 L as does not give him as much improvement in his comfort understandably. But discussed the reasons why this was the case today. Discharge Plan Departure Patient Disposition: Home Clinical Impression: Ascites, Alcoholic cirrhosis of liver with ascites Activity Restrictions/Additional Instructions: Please follow-up with your hepatology team in [place] if you are returning the end of this week. Printed are your labs to share with them. Your renal function is significantly low, you may be developing hepatorenal syndrome. I did speak with gastroenterology today, Dr. Luu who is office contacted you previously. I also spoke with Nephrology today the recommendations are for 5 L maximum today as well as albumin. They did discuss increasing your spironolactone to 50 mg (2 tablets) and that you continue Bumex 1 mg daily. Please return for fevers, new or worsening abdominal pain, lightheadedness or passing out, shortness of breath, swelling of extremities, increasing swelling or pain or other new or concerning symptoms. Prescriptions: New spironolactone 25 mg tablet 50 mg PO DAILY Qty: 30 0RF No Action torsemide 40 mg tablet 40 mg PO DAILY Qty: 30 1RF Referrals: Ab Knowles PA-C [Non-Staff] - Siva Luu MD [Non-Staff] - Visit Report Forms: Patient Portal/API
--- NOTE | 2022-02-16 11:36 | DI.US.S_ITS ---
PROCEDURE: US ABDOMEN LIMITED INDICATIONS: KARON FOR PARA TECHNIQUE: Real-time scanning was performed of the abdominal ascites, with image documentation. COMPARISON: Paracentesis ultrasound 01/25/2022. FINDINGS: There is a large volume of ascites. Right lower quadrant marked. There is approximately 8 cm of fluid at this site. This skin is 0.8 cm in thickness to reach the fluid. No concerning blood vessel at this site. IMPRESSION: Large volume of ascites. Skin marked in the right lower quadrant for paracentesis. Dictated by: Reggie Keller M.D. on 02/16/2022 at 13:12 Approved by: Reggie Keller M.D. on 02/16/2022 at 13:13
[2022-02-16] MEDS: LIDOCAINE 1% (PF) 5 ML INJ (13:20)
--- NOTE | 2022-02-16 15:12 | PC.NURSE ---
patient tolerated paracentesis well. no complications. [address] Penn aware. Dr. Penn removed paracentesis catheter and she placed a bandaid over the site. patient declined the albumin. Dr. Penn aware.
== END 2022-02-16 15:56 | disposition home or self-care (01) ==
PROVIDERS: Emergency Provider Emergency Medicine
DX: K70.31 Alcoholic cirrhosis of liver with ascites (principal)
CPT/HCPCS: 36415; 49082; 76705; 80053; 82140; 83690; 85025; 85610; 85730; 99284

== ENCOUNTER 2022-03-14 08:16 | Emergency (ER) | payer OTHER, SELFPAY ==
[2022-03-14 08:28] VITALS: BP 106/66; PULSE 66; RESP 18; TEMP 36.3; O2SAT 100; BMI 26.9
--- NOTE | 2022-03-14 08:49 | ED.GENADULT ---
HPI - General Adult General Chief complaint: Abdominal Pain Stated complaint: parenstesis Time Seen by Provider: 03/14/22 08:49 Source: patient Mode of arrival: Family Vehicle History of Present Illness HPI narrative: 51-year-old gentleman presents requesting help with recurrent paracentesis he has a history of alcoholic cirrhosis and chronic kidney disease. He is currently trying to get health care in [facility] and is alternating healthcare between [facility] in [place]. He has been in 2 times before to our emergency department for paracentesis. He always requests large volume, 10 L as the 1st ER he visited was willing to do that. Given his worsening renal function concern for hepatorenal syndrome in consultation with GI and Nephrology previously recommendations have consistently been to take no more than 5 L and to give him 50 g of albumin. He is continuing to take 50 mg of spironolactone and a mg of Bumex. He has an appointment with his household refrigerator mechanic in [place] in approximately 3 weeks. In the meantime, he is getting tomorrow and is increasingly uncomfortable with his significantly distended belly. Describes no fevers, cough, chills, abdominal pain aside from just the pain of overall distention. No shortness of breath aside from lying back and having the pressure from his large abdomen. No lower extremity edema. Related Data Previous Rx's Medication Instructions Recorded torsemide 40 mg tablet 40 mg PO DAILY #30 tabs 02/02/22 spironolactone 25 mg tablet 50 mg PO DAILY #30 tabs 02/16/22 Allergies Allergy/AdvReac Type Severity Reaction Status Date / Time No Known Drug Allergies Allergy Verified 03/14/22 08:28 Review of Systems Review of Systems Narrative: Remainder of complete review of systems is otherwise unremarkable except for that included in the HPI. Patient History Medical History Alcohol use disorder Ascites Chronic renal failure Hypertension Liver failure Social History lives independently: Yes Smoking Status: Current some day smoker Smoking Status: Current some day smoker tobacco type: cigarettes alcohol intake frequency: other Substance Use Type: former substance user Exam Initial Vital Signs Initial Vital Signs: Vital Signs Temperature 97.3 F L 03/14/22 08:28 Pulse Rate 66 03/14/22 08:28 Respiratory Rate 18 03/14/22 08:28 Blood Pressure 106/66 03/14/22 08:28 Pulse Oximetry 100 03/14/22 08:28 Oxygen Delivery Method 03/14/22 08:28 General: Healthy appearing, in no acute distress. Able to give a complete and coherent history. Well-nourished well-developed HEENT: Moist mucous membranes, normal sclera with reactive pupils, Neck: Minor JVD, supple Respiratory: Lungs are clear to auscultation, no wheezing no rales no rhonchi. Full and symmetrical air movement Cardiac: Regular rate and rhythm no murmurs no bruits Abdomen: Large ascites but otherwise Soft, nontender, no flank pain Skin: Warm and dry, no rashes Neurologic: Grossly neurologically intact with no obvious asymmetries or abnormalities Extremities: No trauma, well perfused Psych: Cooperative, appropriate insight and affect Procedures Paracentesis Time of procedure: 16:20 Indication: Ascites Procedure: therapeutic paracentesis Location: RLQ Local Anesthetic: lidocaine 1% Amount of anesthesia used (mL): 2 Bedside Ultrasound Used: yes, Ascites confirmed and location marked Preparation: Blade used to make hua in skin Amount of fluid obtained (mL): 4,800 Fluid: clear Post Procedure Exam: awake, alert, normal BP, normal HR and normal SpO2 Patient Tolerated Procedure: Well Complications: none Course Orders Ordered: ED Orders 03/14/22 09:15 Complete Blood Count AUTO DIFF Stat Comprehensive Metabolic Panel Stat Discontinued Medications Albumin Human (Albuminar) 50 gm in 200 mls @ 60 mls/hr IV NOW ONE Stop: 03/14/22 13:30 Last Infusion: 03/14/22 14:36 Dose: 0 mls/hr Documented By: Admin: 03/14/22 10:56 Dose: 60 mls/hr Documented By: BT Vital Signs Vital signs: Vital Signs - 8 hr 03/14/22 08:28 Temperature 97.3 F L Pulse Rate 66 Respiratory Rate 18 Blood Pressure 106/66 Pulse Oximetry 100 Oxygen Delivery Method Room Air Medical Decision Making Lab Data Result diagrams: 03/14/22 09:15 03/14/22 09:15 Labs: Lab Results 03/14/22 03/14/22 Range/Units 09:15 09:15 WBC 6.9 (4.5-11.0) X10^3/uL RBC 3.66 L (4.5-5.9) X10^6/uL Hgb 11.6 L (13.5-17.5) g/dL Hct 33.6 L (41-53) % MCV 91.8 (80-100) fL MCH 31.7 (26-34) PG MCHC 34.5 (30-36) % RDW 17.0 H (11.6-14.8) % Plt Count 88 L (150-400) X10^3/uL Neut % (Auto) 75.0 (50-75) % Lymph % (Auto) 9.8 L (25-40) % [place] % (Auto) 12.6 (3-14) % Eos % (Auto) 1.8 L (2-4) % Baso % (Auto) 0.8 (0-2) % Neut # (Auto) 5200 (5990-2160) /uL Lymph # (Auto) 700 L (0848-2971) /uL [place] # (Auto) 900 (0-900) /uL Eos # (Auto) 100 (0-450) /uL Baso # (Auto) 100 (0-100) /uL Sodium 136 L (137-145) mmol/L Potassium 4.4 (3.4-5.1) mmol/L Chloride 103 (98-107) mmol/L Carbon Dioxide 21 L (22-32) mmol/L BUN 60 H (9-20) mg/dL Creatinine 2.83 H (0.66-1.25) mg/dL Estimated GFR 26 L (>60) mL/min BUN/Creatinine Ratio 21.2 (6-22) Glucose 129 H (70-100) mg/dL Calcium 8.8 (8.4-10.2) mg/dL Total Bilirubin 0.8 (0.2-1.3) mg/dL AST 32 (17-59) IU/L ALT 17 (<50) IU/L Alkaline Phosphatase 105 (38-126) U/L Total Protein 8.4 H (6.3-8.2) g/dL Albumin 4.2 (3.5-5.0) g/dL Globulin 4.2 H (1.7-4.1) g/dL Albumin/Globulin Ratio 1.0 (1.0-2.8) MDM Narrative Medical decision making narrative: 51-year-old gentleman with recurrent ascites in the setting of alcoholic cirrhosis with significantly elevated creatinine. Labs are essentially unchanged today. A total of 900 cc x 5 containers is withdrawn without complication. He is given 50 g of albumin prior to this. Tolerated the procedure well. We again discussed the importance of following up with Gastroenterology and scheduling paracenteses as doing them in the emergency department can get quite challenging. He is safe for home discharge Discharge Plan Departure Patient Disposition: Home Clinical Impression: Cirrhosis Qualifiers: Hepatic cirrhosis type: alcoholic cirrhosis Ascites presence: with ascites Qualified Code(s): K70.31 - Alcoholic cirrhosis of liver with ascites Ascites Qualifiers: Ascites type: due to alcoholic cirrhosis Qualified Code(s): K70.31 - Alcoholic cirrhosis of liver with ascites Chronic kidney failure Qualifiers: Chronic kidney disease stage: unspecified stage Qualified Code(s): N18.9 - Chronic kidney disease, unspecified Instructions: DI for Abdominal Paracentesis Activity Restrictions/Additional Instructions: Thank you for coming in today The exceptionally long wait due to acuity in the emergency department is 1 of the reasons that it is very nice to be able to simply schedule paracentesis as an outpatient. Please make sure you follow-up with your household refrigerator mechanic in [place]. I wish you luck with figuring out insurance issues in [facility] and establishing with a rescue instructor and primary care doctor appear. I hope you have a beautiful wedding tomorrow and I wish you the best Prescriptions: No Action torsemide 40 mg tablet 40 mg PO DAILY Qty: 30 1RF spironolactone 25 mg tablet 50 mg PO DAILY Qty: 30 0RF Referrals: Miscellaneous,DoctorMD [Primary Care Provider] -
[2022-03-14 09:22] LABS: Add Manual Diff / Slide Review NO; Basophils Absolute Auto 100 /uL (0-100); Basophils Percent Auto 0.8 % (0-2); Eosinophils Absolute Auto 100 /uL (0-450); Eosinophils Percent Auto 1.8 % (2-4); Hematocrit 33.6 % (41-53); Hemoglobin 11.6 g/dL (13.5-17.5); Lymphocytes Absolute Auto 700 /uL (1100-4500); Lymphocytes Percent Auto 9.8 % (25-40); Mean Corpuscular HGB Conc 34.5 % (30-36); Mean Corpuscular Hemoglobin 31.7 PG (26-34); Mean Corpuscular Volume 91.8 fL (80-100); Monocytes Absolute Auto 900 /uL (0-900); Monocytes Percent Auto 12.6 % (3-14); Neutrophils Absolute Auto 5200 /uL (1500-7000); Platelet Count 88 X10^3/uL (150-400); Red Blood Cell Count 3.66 X10^6/uL (4.5-5.9); White Blood Cell Count 6.9 X10^3/uL (4.5-11.0)
[2022-03-14 09:34] LABS: Alanine Aminotransferase 17 IU/L (<50); Albumin 4.2 g/dL (3.5-5.0); Alkaline Phosphatase 105 U/L (38-126); Aspartate Aminotransferase 32 IU/L (17-59); BUN Creatinine Ratio 21.2 (6-22); Bilirubin Total 0.8 mg/dL (0.2-1.3); Blood Urea Nitrogen 60 mg/dL (9-20); Calcium 8.8 mg/dL (8.4-10.2); Carbon Dioxide 21 mmol/L (22-32); Chloride 103 mmol/L (98-107); Estimated Glomerular Filt Rate 26 mL/min (>60); Globulin 4.2 g/dL (1.7-4.1); Glucose 129 mg/dL (70-100); HEMOLYSIS < 15 (0-50); Potassium 4.4 mmol/L (3.4-5.1); Sodium 136 mmol/L (137-145); Total Protein 8.4 g/dL (6.3-8.2)
[2022-03-14] MEDS: ALBUMIN HUMAN 50 GM/200 ML VIAL IV (10:56)
--- NOTE | 2022-03-14 16:55 | PM.PROC.1 ---
Procedures Date/Time Date of procedure: 03/14/22 Time of procedure: 15:57 General Complications: none Paracentesis Time out performed: Yes Indication: Ascites Procedure: therapeutic paracentesis Location: RLQ Local anesthetic used: lidocaine 1% Amount of anesthesia used (ml): 5 Bedside ultrasound used: yes, Ascites confirmed and location marked Preparation: sterile prep and drape Amount of fluid obtained (ml): 5,000 Fluid: clear Post procedure exam: awake, alert, normal BP and normal HR Patient tolerated procedure: well and no complications Complications: none
[2022-03-14 17:03] VITALS: BP 129/73; PULSE 77
== END 2022-03-14 17:09 | disposition home or self-care (01) ==
PROVIDERS: Emergency Provider Emergency Medicine
DX: K70.31 Alcoholic cirrhosis of liver with ascites (principal); N18.9 Chronic kidney disease, unspecified
CPT/HCPCS: 36415; 49082; 80053; 85025; 96365; 96366; 99284; P9041

== ENCOUNTER 2022-03-30 11:00 | Emergency (ER) | payer OTHER, SELFPAY ==
[2022-03-30] VITALS (20 sets, daily range): BP systolic 128–152; BP diastolic 71–90; PULSE 74–86; RESP 16; TEMP 36.7; O2SAT 96–100; BMI 26.3
[2022-03-30 15:18] LABS: Add Manual Diff / Slide Review NO; Basophils Absolute Auto 0 /uL (0-100); Basophils Percent Auto 0.6 % (0-2); Eosinophils Absolute Auto 100 /uL (0-450); Eosinophils Percent Auto 1.5 % (2-4); Hematocrit 36.3 % (41-53); Hemoglobin 12.4 g/dL (13.5-17.5); Lymphocytes Absolute Auto 500 /uL (1100-4500); Lymphocytes Percent Auto 8.1 % (25-40); Mean Corpuscular HGB Conc 34.1 % (30-36); Mean Corpuscular Hemoglobin 31.7 PG (26-34); Mean Corpuscular Volume 92.9 fL (80-100); Monocytes Absolute Auto 1000 /uL (0-900); Monocytes Percent Auto 14.4 % (3-14); Neutrophils Absolute Auto 5100 /uL (1500-7000); Neutrophils Percent Auto 75.4 % (50-75); Platelet Count 103 X10^3/uL (150-400); Red Blood Cell Count 3.91 X10^6/uL (4.5-5.9); Red Cell Distribution Width 16.5 % (11.6-14.8); White Blood Cell Count 6.7 X10^3/uL (4.5-11.0)
[2022-03-30 15:22] LABS: INR 1.3 (0.9-1.3); Prothrombin Time 14.4 SECONDS (10.1-12.7)
[2022-03-30 15:24] LABS: PTT Partial Thromboplastin Tim 35 SECONDS (26-36)
[2022-03-30 15:27] LABS: Alanine Aminotransferase 24 IU/L (<50); Albumin 4.5 g/dL (3.5-5.0); Alkaline Phosphatase 102 U/L (38-126); Aspartate Aminotransferase 43 IU/L (17-59); BUN Creatinine Ratio 20.6 (6-22); Bilirubin Total 1.6 mg/dL (0.2-1.3); Blood Urea Nitrogen 69 mg/dL (9-20); Calcium 9.5 mg/dL (8.4-10.2); Carbon Dioxide 21 mmol/L (22-32); Chloride 96 mmol/L (98-107); Estimated Glomerular Filt Rate 22 mL/min (>60); Globulin 4.7 g/dL (1.7-4.1); Glucose 145 mg/dL (70-100); HEMOLYSIS < 15 (0-50); Lipase 367 U/L (23-300); Potassium 4.2 mmol/L (3.4-5.1); Sodium 134 mmol/L (137-145); Total Protein 9.2 g/dL (6.3-8.2)
--- NOTE | 2022-03-30 16:53 | DI.US.S_ITS ---
PROCEDURE: US ABDOMEN LIMITED INDICATIONS: ASCITES. KARON DR. ROTHMAN TO PERFORM. TECHNIQUE: Real-time focused scanning was performed of the abdomen, with image documentation. COMPARISON: [facility], , US ABDOMEN LIMITED, 02/16/2022, 12:24. FINDINGS: A spot involving the left lower quadrant was marked for paracentesis to be performed by Dr. Rothman. At this site, the fluid is seen 8 mm below the skin surface. IMPRESSION: Skin marking for paracentesis. Dictated by: Remigio Hamilton M.D. on 03/30/2022 at 16:44 Approved by: Remigio Hamilton M.D. on 03/30/2022 at 16:45
--- NOTE | 2022-03-30 18:00 | ED_ITS ---
HPI - Recheck/Abnormal Lab/Rx General Chief Complaint: Recheck/Abnormal Lab/Rx Stated Complaint: parasentesis Time Seen by Provider: 03/30/22 12:55 Source: patient Mode of arrival: Ambulatory History of Present Illness HPI narrative: This is a 51-year-old male requesting recurrent paracentesis with history of alcoholic cirrhosis and chronic kidney disease who is trying to get access to [facility] and alternates his healthcare between [place] and [place] he has been here several times he always request 10 L fluid removed but there is concern about hepatorenal syndrome and Gastroenterology and Nephrology have both recommended no more than 5 L and 50 g of albumin each time. Patient most recently was on spironolactone and Bumex and has not had any additional changes to his medications. He was seen most recently on 03/14 with increasingly distended abdomen. Patient states he has been increasingly distended but denies fevers, pain, shortness of breath, nausea or vomiting, new swelling of the extremities or other changes. Patient states he is supposed to have a change in his insurance and be able to see someone locally after April 20. He states he was going to return to [place] for the short-term but has not. Patient would like 10 L drained but we discussed recommendations from the last 2 consult when I have seen him from Gastroenterology and Nephrology which are 5 L with albumin. Patient very politely defers albumin today. Related Data Previous Rx's Medication Instructions Recorded torsemide 40 mg tablet 40 mg PO DAILY #30 tabs 02/02/22 spironolactone 25 mg tablet 50 mg PO DAILY #30 tabs 02/16/22 Allergies Allergy/AdvReac Type Severity Reaction Status Date / Time No Known Drug Allergies Allergy Verified 03/14/22 08:28 Review of Systems Review of Systems ROS Unobtainable: All systems reviewed & are unremarkable except as noted in HPI and below Patient History Medical History Alcohol use disorder Ascites Chronic renal failure Hypertension Liver failure Social History lives independently: Yes Smoking Status: Current some day smoker Smoking Status: Current some day smoker tobacco type: cigarettes alcohol intake frequency: other Substance Use Type: former substance user Exam Narrative Exam Narrative: GENERAL: Alert and oriented x three, thin male. No scleral icterus. HEENT: Head normocephalic, atraumatic, EOMI, pupils reactive, face symmetric, moist mucous membranes NECK: Supple, full range of motion CARDIOVASCULAR: Regular rate and rhythm without murmurs, rubs or gallops. RESPIRATORY: Breath sounds equal bilaterally, no wheezes rales or rhonchi. ABDOMEN: Soft, nontender. Significantly distended with fluid wave. Normoactive bowel sounds all 4 quadrants. No guarding or rebound, rigidity, no mass : No CVA tenderness EXTREMITIES: Normal range of motion, no clubbing or edema and bilateral upper or lower extremities. Neurovascularly intact NEUROLOGICAL: Cranial nerves II through XII grossly intact. Moving all extremities SKIN: Warm, dry, no petechiae, no rashes or lesions. Initial Vital Signs Initial Vital Signs: Vital Signs Temperature 98.0 F 03/30/22 11:16 Pulse Rate 74 03/30/22 11:16 Respiratory Rate 16 03/30/22 11:16 Blood Pressure 130/77 03/30/22 11:16 Pulse Oximetry 100 03/30/22 11:16 Oxygen Delivery Method 03/30/22 11:16 Procedures Paracentesis Time of procedure: 19:11 Time Out Performed: Yes Indication: Ascites Procedure: therapeutic paracentesis Location: LLQ Local Anesthetic: lidocaine 1% Amount of anesthesia used (mL): 5 Bedside Ultrasound Used: yes, real-time guidance (Location marked by ultrasound as well as real-time guidance by myself with ultrasound) Preparation: sterile prep and drape Fluid: clear Size of Needle Used: 18 Post Procedure Exam: awake, alert Course Orders Ordered: ED Orders 03/30/22 15:00 CBC Auto Diff [Complete Blood Count AUTO DIFF] Stat CMP [Comprehensive Metabolic Panel] Stat Lipase Stat PTT [Partial Thromboplastin Time] Stat Prothrombin Time INR Stat 03/30/22 16:53 US abdomen limited Stat Vital Signs Vital signs: Vital Signs - 8 hr 03/30/22 16:55 03/30/22 16:55 03/30/22 17:00 Pulse Rate 80 Blood Pressure 128/82 136/86 Pulse Oximetry 96 03/30/22 17:00 03/30/22 17:30 03/30/22 17:30 Pulse Rate 79 79 Blood Pressure 130/78 Pulse Oximetry 100 99 03/30/22 18:00 03/30/22 18:00 03/30/22 18:30 Pulse Rate 76 Blood Pressure 140/77 135/80 Pulse Oximetry 98 03/30/22 18:30 03/30/22 18:57 03/30/22 18:57 Pulse Rate 76 86 Blood Pressure 147/87 H Pulse Oximetry 99 98 03/30/22 19:00 03/30/22 19:00 03/30/22 19:05 Pulse Rate 82 81 Blood Pressure 152/86 H Pulse Oximetry 97 98 03/30/22 19:05 03/30/22 19:10 03/30/22 19:10 Pulse Rate 80 Blood Pressure 142/90 H 134/88 Pulse Oximetry 98 03/30/22 19:15 03/30/22 19:15 03/30/22 19:20 Pulse Rate 80 80 Blood Pressure 138/83 Pulse Oximetry 98 98 03/30/22 19:20 03/30/22 19:25 03/30/22 19:25 Pulse Rate 78 Blood Pressure 136/85 130/80 Pulse Oximetry 99 03/30/22 19:30 03/30/22 19:30 03/30/22 19:35 Pulse Rate 78 78 Blood Pressure 135/84 Pulse Oximetry 98 99 03/30/22 19:35 03/30/22 19:40 03/30/22 19:40 Pulse Rate 76 Blood Pressure 146/71 H 138/78 Pulse Oximetry 98 03/30/22 19:45 03/30/22 19:45 03/30/22 19:50 Pulse Rate 76 74 Blood Pressure 135/79 Pulse Oximetry 99 99 03/30/22 19:50 03/30/22 19:55 03/30/22 19:55 Pulse Rate 75 Blood Pressure 129/84 135/86 Pulse Oximetry 98 03/30/22 20:00 03/30/22 20:00 Pulse Rate 74 Blood Pressure 139/85 Pulse Oximetry 98 MDM - Recheck/Abnormal Lab/Rx Lab Data Result diagrams: 03/30/22 15:00 03/30/22 15:00 Labs: Lab Results 03/30/22 03/30/22 03/30/22 Range/Units 15:00 15:00 15:00 WBC 6.7 (4.5-11.0) X10^3/uL RBC 3.91 L (4.5-5.9) X10^6/uL Hgb 12.4 L (13.5-17.5) g/dL Hct 36.3 L (41-53) % MCV 92.9 (80-100) fL MCH 31.7 (26-34) PG MCHC 34.1 (30-36) % RDW 16.5 H (11.6-14.8) % Plt Count 103 L (150-400) X10^3/uL Neut % (Auto) 75.4 H (50-75) % Lymph % (Auto) 8.1 L (25-40) % [place] % (Auto) 14.4 H (3-14) % Eos % (Auto) 1.5 L (2-4) % Baso % (Auto) 0.6 (0-2) % Neut # (Auto) 5100 (6807-0568) /uL Lymph # (Auto) 500 L (2528-3499) /uL [place] # (Auto) 1000 H (0-900) /uL Eos # (Auto) 100 (0-450) /uL Baso # (Auto) 0 (0-100) /uL PT 14.4 H (10.1-12.7) SECONDS INR 1.3 (0.9-1.3) APTT 35 (26-36) SECONDS Sodium 134 L (137-145) mmol/L Potassium 4.2 (3.4-5.1) mmol/L Chloride 96 L (98-107) mmol/L Carbon Dioxide 21 L (22-32) mmol/L BUN 69 H (9-20) mg/dL Creatinine 3.35 H (0.66-1.25) mg/dL Estimated GFR 22 L (>60) mL/min BUN/Creatinine Ratio 20.6 (6-22) Glucose 145 H (70-100) mg/dL Calcium 9.5 (8.4-10.2) mg/dL Total Bilirubin 1.6 H (0.2-1.3) mg/dL AST 43 (17-59) IU/L ALT 24 (<50) IU/L Alkaline Phosphatase 102 (38-126) U/L Total Protein 9.2 H (6.3-8.2) g/dL Albumin 4.5 (3.5-5.0) g/dL Globulin 4.7 H (1.7-4.1) g/dL Albumin/Globulin Ratio 1.0 (1.0-2.8) Lipase 367 H (23-300) U/L Imaging Data US paracentesis: Radiologist's Impression: Ross Carrillo??51??M??1970 ? Allergy/Adv: No Known Drug Allergies (More??) Close Abdomen Ultrasound (Signed) Joy,Remigio - 03/30/22 Abdomen Ultrasound (Signed) AriannaReggie - 02/16/22 Paracentesis Ultrasound (Signed) Dany Plata - 01/25/22 Launch?[address] [address] Ultrasound Report Signed Patient: Ross Carrillo MR#: [id number] : 1970 Acct:[id number] Age/Sex: 51 / M Date of Service: 03/30/22 Loc: ED Accession Number: [id number] ?? Procedure: US abdomen limited Ordering Provider: Lala Rothman D.O. PROCEDURE: US ABDOMEN LIMITED ? INDICATIONS:? ASCITES. KARON DR. ROTHMAN TO PERFORM. ? TECHNIQUE:? Real-time focused scanning was performed of the abdomen, with image documentation.? ? COMPARISON:? [facility], US ABDOMEN LIMITED, 02/16/2022, 12:24. ? FINDINGS:? A spot involving the left lower quadrant was marked for paracentesis to be performed by Dr. Rothman.? At this site, the fluid is seen 8 mm below the skin surface. ? ? ? IMPRESSION:? Skin marking for paracentesis. ? ? Dictated by: Remigio Hamilton M.D. on 03/30/2022 at 16:44 ? ? Approved by: Remigio Hamilton M.D. on 03/30/2022 at 16:45?? MDM Narrative Medical decision making narrative: This is a 51-year-old male who comes with complaint of ascites and fluid col lection. Patient does not have any fevers, abdominal pain or signs of SBP. His last paracentesis was 925 at his last ER visit. Labs are appropriate for paracentesis today. Patient appears uncomfortable although not in extremis. Consent was obtained and patient had fluid drained with therapeutic tap. Once again we discussed patient needs to establish with providers locally for at least return to [place] until he can. Discharge Plan Departure Patient Disposition: Home Clinical Impression: Alcoholic cirrhosis of liver with ascites, Chronic kidney disease Activity Restrictions/Additional Instructions: Please make sure to follow-up as we discussed. Unfortunately wait times in emergency department are becoming increasingly longer if you are able to establish with a braiding operator and/or primary care you can have scheduled paracentesis as an outpatient. Continue home medications as prescribed. Please return for fevers, new abdominal pain, fluid leaking, lightheadedness or passing out, new chest pain or shortness of breath, increasing swelling of extremities or other new or concerning changes. Prescriptions: No Action torsemide 40 mg tablet 40 mg PO DAILY Qty: 30 1RF spironolactone 25 mg tablet 50 mg PO DAILY Qty: 30 0RF Visit Report Forms: Patient Portal/API
== END 2022-03-30 20:09 | disposition home or self-care (01) ==
PROVIDERS: Emergency Provider Emergency Medicine
DX: K70.31 Alcoholic cirrhosis of liver with ascites (principal); N18.9 Chronic kidney disease, unspecified
CPT/HCPCS: 36415; 49082; 76705; 80053; 83690; 85025; 85610; 85730; 99284

== ENCOUNTER → 2022-07-01 11:04 | Outpatient (CLI) | payer OTHER, SELFPAY ==
[2022-07-06 16:13] LABS: Beta Globulin, Ur 36.6 % (.); Gamma Globulin, Ur 34.6 % (.); M-Spike % Not Observed % (Not Observed); Urine Total Protein 4.2 mg/dL (Not Estab.)
== END ==
PROVIDERS: Referring Provider Student in an Organized Health Care Education/Training Program; Visit Provider Student in an Organized Health Care Education/Training Program
DX: D47.2 Monoclonal gammopathy (principal)
CPT/HCPCS: 84156; 84166; 86335